=== PATIENT | female | born 1945 | race Asian ===

== ENCOUNTER 2024-03-23 10:30 | Inpatient (IN) | payer OTHER, MEDICAID ==
[~2024-03-23] VITALS: Ht 154.3 cm; Wt 60.8 kg
[2024-03-23 10:35] VITALS: BP_SYST 158; PULSE 120; RESP 16; TEMP 98.2; O2SAT 95
[2024-03-23 11:04] LABS: BASOPHILS # (AUTO) 0.1 K/uL (0.0-0.2); BASOPHILS % (AUTO) 0.9 % (0.0-2.0); EOSINOPHILS # (AUTO) 0.1 K/uL (0.0-0.4); EOSINOPHILS % (AUTO) 1.2 % (0.0-4.0); HEMATOCRIT 42.9 % (36-48); HEMOGLOBIN 14.3 g/dL (12.0-16.0); LYMPHOCYTES # (AUTO) 1.5 K/uL (1.0-5.5); LYMPHOCYTES % (AUTO) 22.9 % (20.5-51.5); MEAN CORPUSCULAR HEMOGLOBIN 31 pg (27-31); MEAN CORPUSCULAR HGB CONC 33 % (32-36); MEAN CORPUSCULAR VOLUME 91 fL (79.0-98.0); MONOCYTES # (AUTO) 0.5 K/uL (0.0-1.0); NEUTROPHILS # (AUTO) 4.4 K/uL (1.8-7.7); PLATELET COUNT (AUTO) 325 K/uL (130-430); RED CELL DISTRIBUTION WIDTH 12.8 % (9.0-15.0); WHITE BLOOD COUNT (AUTO) 6.4 K/uL (4.8-10.8)
[2024-03-23 11:23] LABS: INR 0.9 (0.8-1.2); PROTHROMBIN TIME 9.9 SECS (9.5-12.5)
[2024-03-23 11:40] LABS: ANION GAP 15 (5-15); CALCIUM 9.3 mg/dL (8.4-11.0); CARBON DIOXIDE 24 mmol/L (23-29); CHLORIDE 103 mmol/L (98-107); CREATININE 0.99 mg/dL (0.55-1.30); GLUCOSE 164 mg/dL (74-106); POTASSIUM 3.2 mmol/L (3.5-5.1); SODIUM SERUM 142 mmol/L (136-145); UREA NITROGEN, BLOOD 14 mg/dL (8-21)
[2024-03-23] MEDS ORDERED: LOSA-413 PO (12:13)
[2024-03-23 12:29] LABS: BILIRUBIN,URINE NEGATIVE (NEGATIVE); BLOOD, URINE 2+ (NEGATIVE); CLARITY/URINE CLEAR (CLEAR); COLOR,URINE YELLOW (YELLOW); GLUCOSE,URINE NEGATIVE (NEGATIVE); KETONES,URINE NEGATIVE (NEGATIVE); LEUKOCYTE ESTERASE ,URINE NEGATIVE (NEGATIVE); NITRITE, URINE NEGATIVE (NEGATIVE); PROTEIN URINE TRACE (NEGATIVE); UROBILINOGEN,URINE 0.2 (0.2-1.0)
[2024-03-23 12:47] LABS: BACTERIA,URINE RARE /HPF (None Seen); HYALINE CASTS, URINE 0-3 /LPF (None Seen); RBC,URINE 20-50 /HPF (0-3); WBC,URINE 0-3 /HPF (0-3)
[2024-03-23] MEDS: ASPIRIN 81 MG TAB.CHEW PO ONE (14:13)
[2024-03-23 16:28] VITALS: BP_SYST 157; PULSE 86; RESP 16; TEMP 98.4
[2024-03-23 17:02] VITALS: O2SAT 97
[2024-03-23 20:39] VITALS: BP_SYST 178; PULSE 94; RESP 24; TEMP 99.1; O2SAT 96
[2024-03-23] MEDS ORDERED: METOPROLOL TARTRATE 5 MG/5 ML VIAL IVP PRN (22:00)
[2024-03-23] MEDS: ASPIRIN 81 MG TABLET(ECOTRIN) PO SCH (22:38)
[2024-03-23] MEDS: LOSARTAN POTASSIUM 50 MG TABLET (COZAAR) PO SCH (22:38)
[2024-03-23] MEDS: ATORVASTATIN 20 MG TABLET PO SCH (22:38)
[2024-03-24 08:00] VITALS: BP_SYST 168; PULSE 91; RESP 16; TEMP 97.2; O2SAT 98
[2024-03-24 08:24] LABS: CHOLESTEROL 300 mg/dL (<200); HDL CHOLESTEROL 70 mg/dL (>55); TRIGLYCERIDES 63 mg/dL (30-150)
[2024-03-24 09:00] VITALS: O2SAT 98
[2024-03-24] MEDS ORDERED: METOPROLOL TARTRATE 5 MG/5 ML VIAL IVP PRN (11:00)
[2024-03-24 11:10] VITALS: BP_SYST 150; PULSE 89; RESP 16; TEMP 97.3; O2SAT 97
[2024-03-24 14:23] VITALS: BP_SYST 141; PULSE 88; RESP 16; TEMP 98.2; O2SAT 98
== END 2024-03-24 14:40 | disposition home or self-care (01) | DRG 69 ==
LOC: SED 10:30 → STU 12:48
PROVIDERS: ADMIT Family Medicine; ATTEND Family Medicine
DX: G45.9 Transient cerebral ischemic attack, unspecified (principal); E78.5 Hyperlipidemia, unspecified; I10 Essential (primary) hypertension; Z79.899 Other long term (current) drug therapy; Z88.8 Allergy status to other drugs, medicaments and biological substances; Z91.199 Patient's noncompliance with other medical treatment and regimen due to unspecified reason
CPT/HCPCS: 36415; 70450-TC; 71045; 80048; 80061; 81000; 81001; 81015; 83037; 83605; 84484; 85025; 85610; 85730; 93005; 93306; 93880; 99285; G0378; J3490

== ENCOUNTER 2024-03-27 10:55 | Inpatient (IN) | payer OTHER ==
[~2024-03-27] VITALS: Ht 157.5 cm; Wt 59.4 kg
[~2024-03-27 10:55] MED LIST: LOSA-413 PO
[2024-03-27 11:04] VITALS: BP_SYST 163; PULSE 97; RESP 18; TEMP 97.2; O2SAT 97
[2024-03-27] MEDS: LORazepam 2 MG/ML VIAL IM ONE (11:26)
[2024-03-27] MEDS: DIPHENHYDRAMINE INJ 50 MG/ML VIAL IM ONE (11:26)
[2024-03-27] MEDS: HALOPERIDOL LACTATE 5 MG/ML VIAL IM ONE (11:27)
[2024-03-27 12:05] LABS: BASOPHILS # (AUTO) 0.1 K/uL (0.0-0.2); BASOPHILS % (AUTO) 0.8 % (0.0-2.0); EOSINOPHILS # (AUTO) 0.1 K/uL (0.0-0.4); HEMATOCRIT 41.4 % (36-48); HEMOGLOBIN 13.9 g/dL (12.0-16.0); LYMPHOCYTES # (AUTO) 1.4 K/uL (1.0-5.5); LYMPHOCYTES % (AUTO) 21.7 % (20.5-51.5); MEAN CORPUSCULAR HEMOGLOBIN 30 pg (27-31); MEAN CORPUSCULAR HGB CONC 34 % (32-36); MEAN CORPUSCULAR VOLUME 91 fL (79.0-98.0); MONOCYTES # (AUTO) 0.7 K/uL (0.0-1.0); MONOCYTES % (AUTO) 10.6 % (1.7-9.3); NEUTROPHILS # (AUTO) 4.1 K/uL (1.8-7.7); NEUTROPHILS % (AUTO) 64.9 % (40.0-70.0); PLATELET COUNT (AUTO) 288 K/uL (130-430); RED BLOOD CELL COUNT(AUTO) 4.58 MIL/uL (4.2-6.2); RED CELL DISTRIBUTION WIDTH 13.1 % (9.0-15.0); WHITE BLOOD COUNT (AUTO) 6.4 K/uL (4.8-10.8)
[2024-03-27 12:20] LABS: INR 0.9 (0.8-1.2); PROTHROMBIN TIME 9.8 SECS (9.5-12.5)
[2024-03-27 12:31] LABS: ALANINE AMINOTRANSFERASE 21 U/L (12-78); ALBUMIN 3.6 g/dL (3.4-4.8); ANION GAP 12 (5-15); ASPARTATE AMINOTRANSFERASE 21 U/L (10-37); BILIRUBIN,DIRECT 0.2 mg/dL (0.0-0.3); CARBON DIOXIDE 27 mmol/L (23-29); CHLORIDE 107 mmol/L (98-107); CREATINE KINASE, TOTAL 94 U/L (26-192); CREATININE 1.06 mg/dL (0.55-1.30); GLUCOSE 121 mg/dL (74-106); POTASSIUM 3.2 mmol/L (3.5-5.1); SALICYLATE 1 mg/dL (3-30); SODIUM SERUM 146 mmol/L (136-145); TOTAL BILIRUBIN 0.9 mg/dL (0.0-1.0); TOTAL PROTEIN, SERUM 7.3 g/dL (6.4-8.3); UREA NITROGEN, BLOOD 22 mg/dL (8-21)
[2024-03-27 12:32] LABS: ACETAMINOPHEN < 1 ug/mL (1-30); ALCOHOL, BLOOD < 3 mg/dL (<10)
[2024-03-27 13:25] LABS: ACETONE, SERUM NEGATIVE (NEGATIVE)
[2024-03-27] MEDS: NACL 0.9% 1,000 ML IV ONE ×3 (13:57→15:32)
[2024-03-27] MEDS ORDERED: NOREPINEPHRINE 4 MG/4 ML VIAL IV ONE (14:11)
[2024-03-27] MEDS ORDERED: ONDANSETRON HCL 4 MG/2 ML VIAL IVP PRN (14:45)
[2024-03-27] MEDS ORDERED: cefTRIAXone 2 GM VIAL IV SCH (15:00)
[2024-03-27] MEDS: NACL 0.9% 1,000 ML IV SCH (15:42)
[2024-03-27] MEDS ORDERED: cefTRIAXone 2 GM VIAL ONE (15:48)
[2024-03-27] MEDS: NOREPINEPHRINE BITARTRATE 4 MG in NS 246 ML IV ONE (16:15)
[2024-03-27 19:16] LABS: BILIRUBIN,URINE NEGATIVE (NEGATIVE); BLOOD, URINE 1+ (NEGATIVE); CLARITY/URINE CLEAR (CLEAR); COLOR,URINE YELLOW (YELLOW); GLUCOSE,URINE NEGATIVE (NEGATIVE); KETONES,URINE NEGATIVE (NEGATIVE); LEUKOCYTE ESTERASE ,URINE TRACE (NEGATIVE); NITRITE, URINE NEGATIVE (NEGATIVE); PROTEIN URINE NEGATIVE (NEGATIVE); UROBILINOGEN,URINE 0.2 (0.2-1.0)
[2024-03-27 19:57] LABS: BACTERIA,URINE None Seen /HPF (None Seen)
[2024-03-27 20:39] LABS: BARBITURATE, URINE NEGATIVE (NEG <=200); BENZODIAZEPINE, URINE POSITIVE (NEG <=150); CANNABINOID, URINE NEGATIVE (NEG <=50); COCAINE, URINE NEGATIVE (NEG <=150); METHAMPHETAMINES SCREEN,URINE NEGATIVE (NEG <=500); OPIATE, URINE NEGATIVE (NEG <=100); PHENCYCLIDINE SCREEN,URINE NEGATIVE (NEG <=25); UR TRICYCLIC ANTIDEPRESSANTS NEGATIVE (NEG <=300); URINE AMPHETAMINE NEGATIVE (NEG <=500); URINE METHADONE NEGATIVE (NEG <=200); URINE OXYCODONE SCREEN NEGATIVE (NEG <=100)
[2024-03-27 21:00] VITALS: BP_SYST 166; PULSE 99; RESP 22; TEMP 98.8; O2SAT 94
[2024-03-27 22:00] VITALS: BP_SYST 157; PULSE 83; RESP 22; O2SAT 94
[2024-03-27 23:00] VITALS: BP_SYST 165; PULSE 81; RESP 19; O2SAT 95
[2024-03-28] VITALS (24 sets, daily range): BP systolic 110–190; PULSE 65–116; RESP 16–39; TEMP 98–98.9; O2SAT 91–98
[2024-03-28 06:37] LABS: BASOPHILS # (AUTO) 0.1 K/uL (0.0-0.2); BASOPHILS % (AUTO) 0.7 % (0.0-2.0); EOSINOPHILS # (AUTO) 0.3 K/uL (0.0-0.4); EOSINOPHILS % (AUTO) 3.3 % (0.0-4.0); HEMATOCRIT 35.8 % (36-48); HEMOGLOBIN 12.1 g/dL (12.0-16.0); LYMPHOCYTES # (AUTO) 1.6 K/uL (1.0-5.5); LYMPHOCYTES % (AUTO) 17.4 % (20.5-51.5); MEAN CORPUSCULAR HEMOGLOBIN 32 pg (27-31); MEAN CORPUSCULAR HGB CONC 34 % (32-36); MEAN CORPUSCULAR VOLUME 96 fL (79.0-98.0); MONOCYTES # (AUTO) 0.9 K/uL (0.0-1.0); MONOCYTES % (AUTO) 10.4 % (1.7-9.3); NEUTROPHILS # (AUTO) 6.2 K/uL (1.8-7.7); NEUTROPHILS % (AUTO) 68.2 % (40.0-70.0); PLATELET COUNT (AUTO) 243 K/uL (130-430); RED BLOOD CELL COUNT(AUTO) 3.75 MIL/uL (4.2-6.2); RED CELL DISTRIBUTION WIDTH 12.4 % (9.0-15.0)
[2024-03-28 07:12] LABS: ALANINE AMINOTRANSFERASE 13 U/L (12-78); ALBUMIN 2.9 g/dL (3.4-4.8); ANION GAP 11 (5-15); ASPARTATE AMINOTRANSFERASE 23 U/L (10-37); CARBON DIOXIDE 25 mmol/L (23-29); CHLORIDE 111 mmol/L (98-107); CREATININE 0.84 mg/dL (0.55-1.30); GLUCOSE 85 mg/dL (74-106); POTASSIUM 3.6 mmol/L (3.5-5.1); SODIUM SERUM 147 mmol/L (136-145); TOTAL PROTEIN, SERUM 6.3 g/dL (6.4-8.3); UREA NITROGEN, BLOOD 12 mg/dL (8-21)
[2024-03-28] MEDS: 0.45% NS 1,000 ML IV SCH (10:00)
[2024-03-28] MEDS ORDERED: GADOTERATE MEGLUMINE 7.5 MMOL/15 ML VIAL IV ONE (12:27)
[2024-03-28] MEDS: METOPROLOL TARTRATE 5 MG/5 ML VIAL IVP PRN (15:06)
[2024-03-28] MEDS: LOSARTAN POTASSIUM 50 MG TABLET (COZAAR) PO SCH (20:03)
[2024-03-29] VITALS (20 sets, daily range): BP systolic 124–200; PULSE 74–181; RESP 17–29; TEMP 97.6–98.6; O2SAT 91–98
[2024-03-29] MEDS: hydrALAZINE HCL 20 MG/ML VIAL IVP PRN (01:43)
[2024-03-29 06:06] LABS: BASOPHILS # (AUTO) 0.1 K/uL (0.0-0.2); BASOPHILS % (AUTO) 0.5 % (0.0-2.0); EOSINOPHILS # (AUTO) 0.1 K/uL (0.0-0.4); EOSINOPHILS % (AUTO) 0.7 % (0.0-4.0); HEMATOCRIT 39.1 % (36-48); HEMOGLOBIN 13.5 g/dL (12.0-16.0); LYMPHOCYTES # (AUTO) 0.9 K/uL (1.0-5.5); LYMPHOCYTES % (AUTO) 7.7 % (20.5-51.5); MEAN CORPUSCULAR HEMOGLOBIN 31 pg (27-31); MEAN CORPUSCULAR HGB CONC 35 % (32-36); MEAN CORPUSCULAR VOLUME 91 fL (79.0-98.0); MONOCYTES # (AUTO) 0.7 K/uL (0.0-1.0); MONOCYTES % (AUTO) 6.2 % (1.7-9.3); NEUTROPHILS # (AUTO) 9.5 K/uL (1.8-7.7); NEUTROPHILS % (AUTO) 84.9 % (40.0-70.0); PLATELET COUNT (AUTO) 270 K/uL (130-430); RED CELL DISTRIBUTION WIDTH 12.7 % (9.0-15.0); WHITE BLOOD COUNT (AUTO) 11.2 K/uL (4.8-10.8)
[2024-03-29 06:29] LABS: ALANINE AMINOTRANSFERASE 17 U/L (12-78); ALBUMIN 3.4 g/dL (3.4-4.8); ANION GAP 12 (5-15); ASPARTATE AMINOTRANSFERASE 21 U/L (10-37); CALCIUM 8.9 mg/dL (8.4-11.0); CARBON DIOXIDE 25 mmol/L (23-29); CHLORIDE 106 mmol/L (98-107); CREATININE 0.75 mg/dL (0.55-1.30); GLUCOSE 116 mg/dL (74-106); SODIUM SERUM 143 mmol/L (136-145); TOTAL BILIRUBIN 0.7 mg/dL (0.0-1.0); TOTAL PROTEIN, SERUM 7.1 g/dL (6.4-8.3); UREA NITROGEN, BLOOD 14 mg/dL (8-21)
[2024-03-29 06:53] LABS: POTASSIUM 2.9 mmol/L (3.5-5.1)
[2024-03-29] MEDS: POTASSIUM CHLORIDE 20 MEQ TABLET.ER PO ONE (08:38)
[2024-03-29] MEDS: POTASSIUM CHLORIDE 40 MEQ, LIDOCAINE JECT 2% PF 100 MG 75 MG in NS 250 ML IV ONE (10:22)
[2024-03-29] MEDS ORDERED: KCL 40 mEq in 100 mL (PREMIX) 40 MEQ, LIDOCAINE JECT 2% PF 100 MG 75 MG in NS 150 ML IV ONE (11:00)
[2024-03-30] VITALS (8 sets, daily range): BP systolic 144–192; PULSE 72–114; RESP 14–20; TEMP 97.4–98.1; O2SAT 95–97
[2024-03-30] MEDS: QUEtiapine FUMARATE 25 MG TABLET PO SCH (21:18)
[2024-03-30] MEDS: METOPROLOL TARTRATE 25 MG TABLET PO SCH (23:58)
[2024-03-31 00:24] VITALS: BP_SYST 139; PULSE 93; RESP 19; TEMP 97.8; O2SAT 96
[2024-03-31 07:49] VITALS: O2SAT 98
[2024-03-31 08:37] VITALS: BP_SYST 152; PULSE 62; RESP 17; TEMP 98.1
[2024-03-31] MEDS: QUEtiapine FUMARATE 25 MG TABLET PO ONE (10:42)
[2024-03-31 12:44] VITALS: BP_SYST 145; PULSE 89; RESP 18; TEMP 98; O2SAT 98
[2024-03-31 16:26] VITALS: BP_SYST 149; PULSE 66; RESP 17; TEMP 98.2; O2SAT 97
[2024-03-31 20:30] VITALS: BP_SYST 140; PULSE 86; RESP 18; TEMP 97.6; O2SAT 95
[2024-03-31] MEDS: QUEtiapine FUMARATE 25 MG TABLET PO SCH (21:26)
[2024-04-01 00:22] VITALS: BP_SYST 133; PULSE 71; RESP 16; TEMP 98.2; O2SAT 96
[2024-04-01 07:30] LABS: BASOPHILS # (AUTO) 0.1 K/uL (0.0-0.2); BASOPHILS % (AUTO) 0.9 % (0.0-2.0); EOSINOPHILS # (AUTO) 0.5 K/uL (0.0-0.4); EOSINOPHILS % (AUTO) 6.8 % (0.0-4.0); HEMATOCRIT 34.9 % (36-48); HEMOGLOBIN 11.8 g/dL (12.0-16.0); LYMPHOCYTES # (AUTO) 1.6 K/uL (1.0-5.5); LYMPHOCYTES % (AUTO) 20.7 % (20.5-51.5); MEAN CORPUSCULAR HEMOGLOBIN 32 pg (27-31); MEAN CORPUSCULAR HGB CONC 34 % (32-36); MEAN CORPUSCULAR VOLUME 94 fL (79.0-98.0); MONOCYTES # (AUTO) 0.8 K/uL (0.0-1.0); MONOCYTES % (AUTO) 11.1 % (1.7-9.3); NEUTROPHILS # (AUTO) 4.6 K/uL (1.8-7.7); NEUTROPHILS % (AUTO) 60.5 % (40.0-70.0); PLATELET COUNT (AUTO) 253 K/uL (130-430); RED CELL DISTRIBUTION WIDTH 12.7 % (9.0-15.0); WHITE BLOOD COUNT (AUTO) 7.6 K/uL (4.8-10.8)
[2024-04-01 07:37] LABS: ALANINE AMINOTRANSFERASE 13 U/L (12-78); ALBUMIN 2.8 g/dL (3.4-4.8); ANION GAP 11 (5-15); ASPARTATE AMINOTRANSFERASE 18 U/L (10-37); CALCIUM 8.4 mg/dL (8.4-11.0); CARBON DIOXIDE 26 mmol/L (23-29); CHLORIDE 107 mmol/L (98-107); CREATININE 0.77 mg/dL (0.55-1.30); GLUCOSE 92 mg/dL (74-106); SODIUM SERUM 144 mmol/L (136-145); TOTAL BILIRUBIN 0.5 mg/dL (0.0-1.0); TOTAL PROTEIN, SERUM 6.2 g/dL (6.4-8.3); UREA NITROGEN, BLOOD 12 mg/dL (8-21)
[2024-04-01 08:17] VITALS: BP_SYST 171; PULSE 78; RESP 17; TEMP 98; O2SAT 96
[2024-04-01 12:27] VITALS: BP_SYST 154; PULSE 75; RESP 17; TEMP 98.1; O2SAT 98
[2024-04-01] MEDS ORDERED: BISACODYL 5 MG TABLET.DR (DULCOLAX) PO PRN (14:30)
[2024-04-01 16:36] VITALS: BP_SYST 150; PULSE 77; RESP 18; TEMP 98.2; O2SAT 97
[2024-04-01] MEDS: POTASSIUM CHLORIDE 20 MEQ TABLET.ER PO ONE (16:53)
[2024-04-01 20:00] VITALS: BP_SYST 161; PULSE 78; RESP 16; TEMP 97.8; O2SAT 95
[2024-04-01 20:30] VITALS: O2SAT 95
[2024-04-01] MEDS: QUEtiapine FUMARATE 25 MG TABLET PO SCH (20:36)
[2024-04-02] VITALS (7 sets, daily range): BP systolic 142–190; PULSE 61–85; RESP 15–18; TEMP 97.1–98; O2SAT 94–100
[2024-04-02] MEDS: POLYETHYLENE GLYCOL 3350, 17 GM/ POWD.PACK PO SCH (08:42)
[2024-04-02] MEDS: POTASSIUM CHLORIDE 60 MEQ in NS 500 ML IV ONE (13:03)
[2024-04-03 00:09] VITALS: BP_SYST 144; PULSE 67; RESP 19; TEMP 98; O2SAT 99
[2024-04-03 07:40] LABS: BASOPHILS # (AUTO) 0.1 K/uL (0.0-0.2); BASOPHILS % (AUTO) 0.7 % (0.0-2.0); EOSINOPHILS # (AUTO) 0.5 K/uL (0.0-0.4); EOSINOPHILS % (AUTO) 6.9 % (0.0-4.0); HEMATOCRIT 34.3 % (36-48); HEMOGLOBIN 11.5 g/dL (12.0-16.0); LYMPHOCYTES # (AUTO) 0.9 K/uL (1.0-5.5); LYMPHOCYTES % (AUTO) 11.3 % (20.5-51.5); MEAN CORPUSCULAR HEMOGLOBIN 31 pg (27-31); MEAN CORPUSCULAR HGB CONC 34 % (32-36); MEAN CORPUSCULAR VOLUME 91 fL (79.0-98.0); MONOCYTES # (AUTO) 0.8 K/uL (0.0-1.0); MONOCYTES % (AUTO) 10.3 % (1.7-9.3); NEUTROPHILS # (AUTO) 5.4 K/uL (1.8-7.7); NEUTROPHILS % (AUTO) 70.8 % (40.0-70.0); PLATELET COUNT (AUTO) 275 K/uL (130-430); RED BLOOD CELL COUNT(AUTO) 3.77 MIL/uL (4.2-6.2); RED CELL DISTRIBUTION WIDTH 12.5 % (9.0-15.0); WHITE BLOOD COUNT (AUTO) 7.7 K/uL (4.8-10.8)
[2024-04-03 08:01] LABS: ALANINE AMINOTRANSFERASE 11 U/L (12-78); ALBUMIN 2.8 g/dL (3.4-4.8); ANION GAP 13 (5-15); ASPARTATE AMINOTRANSFERASE 16 U/L (10-37); CALCIUM 8.8 mg/dL (8.4-11.0); CARBON DIOXIDE 25 mmol/L (23-29); CHLORIDE 105 mmol/L (98-107); CREATININE 0.92 mg/dL (0.55-1.30); GLUCOSE 65 mg/dL (74-106); POTASSIUM 3.5 mmol/L (3.5-5.1); SODIUM SERUM 143 mmol/L (136-145); TOTAL BILIRUBIN 0.6 mg/dL (0.0-1.0); TOTAL PROTEIN, SERUM 6.2 g/dL (6.4-8.3); UREA NITROGEN, BLOOD 21 mg/dL (8-21)
[2024-04-03 08:05] VITALS: BP_SYST 144; PULSE 82; RESP 16; TEMP 99; O2SAT 95
[2024-04-03 09:05] VITALS: O2SAT 95
[2024-04-03 12:32] VITALS: BP_SYST 152; PULSE 77; RESP 16; TEMP 98.2; O2SAT 94
[2024-04-03 14:19] VITALS: BP_SYST 126; PULSE 77; RESP 18; TEMP 98.6; O2SAT 99
== END 2024-04-03 15:11 | DRG 314 ==
LOC: SED 10:55 → SIC 14:38 → UNDOADMIN 14:38 → SIC 21:00 → STU 03-29 18:21 → SMU 04-02 16:35
PROVIDERS: ADMIT Family Medicine; ATTEND Family Medicine
PROC: 4A00X4Z Measurement of Central Nervous Electrical Activity, External Approach (ICD-10-PCS; 2024-03-27)
PROC: 02HV33Z Insertion of Infusion Device into Superior Vena Cava, Percutaneous Approach (ICD-10-PCS; 2024-03-27)
PROC: 4A00X4Z Measurement of Central Nervous Electrical Activity, External Approach (ICD-10-PCS; principal; 2024-03-28)
DX: I95.9 Hypotension, unspecified (principal); R57.1 Hypovolemic shock; F02.818 Dementia in other diseases classified elsewhere, unspecified severity, with other behavioral disturbance; N39.0 Urinary tract infection, site not specified; E87.1 Hypo-osmolality and hyponatremia; E87.6 Hypokalemia; E88.09 Other disorders of plasma-protein metabolism, not elsewhere classified; E78.5 Hyperlipidemia, unspecified; G30.9 Alzheimer's disease, unspecified; E86.1 Hypovolemia; I10 Essential (primary) hypertension; H91.90 Unspecified hearing loss, unspecified ear; Z86.73 Personal history of transient ischemic attack (TIA), and cerebral infarction without residual deficits; Z79.899 Other long term (current) drug therapy; E86.0 Dehydration
CPT/HCPCS: 36415; 70450-TC; 70553; 71045; 80048; 80053; 80076; 80307; 81000; 81001; 81015; 82009; 82140; 82550; 83605; 83735; 83880; 84484; 85025; 85610; 85730; 87040; 87081; 92610-GN; 93005; 95816; 97110-GP; 97530-GP; 99291; A9575; G0378; G0480; G0481; G0482; J0360; J0696; J1200; J1630; J1956; J2060; J3480; J3490; J7030; J7040; J7050; J7060